=== PATIENT | female | born 1940 | race Caucasian/White ===

== ENCOUNTER 2020-07-18 15:24 | Emergency (ER) | payer MEDICARE ==
[~2020-07-18] VITALS: Ht 149.9 cm; Wt 54.5 kg
[2020-07-18] MEDS ORDERED: REPATHA140 MG/ML SC (15:47)
[2020-07-18] MEDS ORDERED: LOSARTAN POTASS25 MG PO (15:48)
[2020-07-18] MEDS ORDERED: PROTONIX40 M2 PO (15:48)
[2020-07-18 16:41] LABS: URINE BILIRUBIN - DIPSTICK NEGATIVE (NEGATIVE); URINE BLOOD DIPSTICK TRACE-INTACT (NEGATIVE); URINE COLOR YELLOW; URINE GLUCOSE - DIPSTICK NEGATIVE (NEGATIVE); URINE KETONE TRACE mg/dL (NEGATIVE); URINE LEUK ESTERASE NEGATIVE (NEGATIVE); URINE NITRITE - DIPSTICK NEGATIVE (Negative); URINE PH 6.5 (4.5-8.0); URINE PROTEIN - DIPSTICK NEGATIVE (NEG-TRACE); URINE SPECIFIC GRAVITY 1.025; URINE UROBILINOGEN - DIPSTICK 0.2 E.U./dL (0.2)
[2020-07-18] MEDS ORDERED: FLEXERIL5 M1 PO (17:41)
[2020-07-18] MEDS ORDERED: NAPROXEN375 MG PO (17:41)
[2020-07-18 17:45] VITALS: BP 164/74
== END 2020-07-18 17:45 | disposition home or self-care (01) ==
LOC: ED 15:24
PROVIDERS: Family Medicine
DX: S76.911A Strain of unspecified muscles, fascia and tendons at thigh level, right thigh, initial encounter (principal); I10 Essential (primary) hypertension; X58.XXXA Exposure to other specified factors, initial encounter; Y92.009 Unspecified place in unspecified non-institutional (private) residence as the place of occurrence of the external cause; Z86.711 Personal history of pulmonary embolism; M79.651 Pain in right thigh

== ENCOUNTER 2022-01-25 03:42 | Emergency (ER) | payer MEDICARE ==
[2022-01-25] VITALS (13 sets, daily range): BP systolic 125–185; BP diastolic 59–91
[~2022-01-25] VITALS: Ht 149.9 cm; Wt 54.0 kg
[~2022-01-25 03:42] MED LIST: FLEXERIL5 M1 PO; LOSARTAN POTASS25 MG PO; NAPROXEN375 MG PO; PROTONIX40 M2 PO; REPATHA140 MG/ML SC
[2022-01-25] MEDS ORDERED: FAMOTIDINE20 M1 PO (03:50)
[2022-01-25] MEDS ORDERED: ROSUVASTATIN CA10 MG (03:50)
[2022-01-25] MEDS ORDERED: PROTONIX40 M2 PO (03:51)
[2022-01-25] MEDS ORDERED: ASPIRIN81 MG PO (03:51)
[2022-01-25] MEDS ORDERED: CENTRUM PO (03:51)
[2022-01-25] MEDS ORDERED: CALTRATE 600+D1 CHW (03:52)
[2022-01-25] MEDS ORDERED: TIMOLOL 0.25%5 ML OP (03:53)
[2022-01-25 04:12] LABS: HEMATOCRIT 39.9 % (37.0-47.0); HEMOGLOBIN 13.2 g/dl (12.0-16.0); IMMATURE GRANULOCYTES 0.3 % (0.0-5.0); MEAN CELL VOLUME 95.5 fL CALC (80.0-100.0); MEAN CORPUSCULAR HGB 31.6 pG CALC (26.0-32.0); MEAN CORPUSCULAR HGB CONC 33.1 g/dL CAL (32.0-36.0); NEUT# 4.01 thou/uL (2.00-7.15); RED BLOOD COUNT 4.18 mill/uL (4.20-5.60); RED CELL DISTRI WIDTH 12.6 % (11.5-15.5)
[2022-01-25 04:19] LABS: ALBUMIN 4.2 g/dL (3.2-5.0); ALKALINE PHOSPHATASE 70 u/l (38-126); ANION GAP 9 (6-22 (CALC)); BILIRUBIN, TOTAL 0.5 mg/dL (0.0-1.4); BUN 8 mg/dL (8-23); BUN/CREATININE RATIO 16 (12-20 (CALC)); CARBON DIOXIDE 28 mmol/l (22-30); CHLORIDE 103 mmol/l (95-108); CREATININE 0.5 mg/dL (0.5-1.0); GFR FOR AFR.AMER. > 60 ML/MIN (>=60 (CALC)); GFR OTHER RACES > 60 ML/MIN (>=60 (CALC)); SGOT/AST 49 u/l (9-36); SODIUM 136 mmol/l (137-146); TOTAL PROTEIN 6.7 g/dL (6.3-8.2)
[2022-01-25 04:21] LABS: POTASSIUM 3.7 mmol/l (3.5-5.1)
[2022-01-25 04:22] LABS: D-DIMER 1.01 mg/L (0.19-0.60)
[2022-01-25 04:31] LABS: ACT PARTIAL THROMBO TIME 18.9 SECONDS (20.0-32.5); MYOGLOBIN 38 ng/mL (0 - 62)
[2022-01-25] MEDS ORDERED: AMOX/K CLAV875 M1 PO (07:58)
[2022-01-25] MEDS ORDERED: ZPAK PO (07:58)
[2022-01-25 08:03] LABS: URINE BILIRUBIN - DIPSTICK NEGATIVE (NEGATIVE); URINE BLOOD DIPSTICK NEGATIVE (NEGATIVE); URINE COLOR YELLOW; URINE GLUCOSE - DIPSTICK NEGATIVE (NEGATIVE); URINE KETONE 15 mg/dL (NEGATIVE); URINE LEUK ESTERASE NEGATIVE (NEGATIVE); URINE PH 7.5 (4.5-8.0); URINE PROTEIN - DIPSTICK NEGATIVE (NEG-TRACE); URINE UROBILINOGEN - DIPSTICK 0.2 E.U./dL (0.2)
[2022-01-25 08:04] LABS: URINE NITRITE - DIPSTICK NEGATIVE (Negative)
== END 2022-01-25 08:15 | disposition home or self-care (01) ==
LOC: ED 03:42
PROVIDERS: Family Medicine
DX: S00.03XA Contusion of scalp, initial encounter (principal); S16.1XXA Strain of muscle, fascia and tendon at neck level, initial encounter; J18.9 Pneumonia, unspecified organism; I10 Essential (primary) hypertension; W07.XXXA Fall from chair, initial encounter; Y92.000 Kitchen of unspecified non-institutional (private) residence as the place of occurrence of the external cause; Z86.718 Personal history of other venous thrombosis and embolism
CPT/HCPCS: Q9967

== ENCOUNTER 2022-09-22 01:28 | Emergency (ER) | payer MEDICARE ==
[~2022-09-22] VITALS: Ht 149.9 cm; Wt 45.0 kg
[2022-09-22] VITALS (8 sets, daily range): BP systolic 124–163; BP diastolic 62–74
[~2022-09-22 01:28] MED LIST changes: +AMOX/K CLAV875 M1 PO; +ASPIRIN81 MG PO; +CALTRATE 600+D1 CHW; +CENTRUM PO; +FAMOTIDINE20 M1 PO; +ROSUVASTATIN CA10 MG; +TIMOLOL 0.25%5 ML OP; +ZPAK PO
[2022-09-22 02:21] LABS: BASO% 0.8 % (0-3); HEMATOCRIT 39.6 % (37.0-47.0); IMMATURE GRANULOCYTES 0.2 % (0.0-5.0); LYMPH% 50.6 % (15-41); MEAN CELL VOLUME 93.2 fL CALC (80.0-100.0); MEAN CORPUSCULAR HGB 30.6 pG CALC (26.0-32.0); MEAN CORPUSCULAR HGB CONC 32.8 g/dL CAL (32.0-36.0); MONO% 9.5 % (2-13); NEUT# 1.82 thou/uL (2.00-7.15); NEUT% 35.9 % (42-76); RED BLOOD COUNT 4.25 mill/uL (4.20-5.60); RED CELL DISTRI WIDTH 12.5 % (11.5-15.5)
[2022-09-22 02:28] LABS: ALBUMIN 4.6 g/dL (3.2-5.0); ALKALINE PHOSPHATASE 83 u/l (38-126); ANION GAP 13 (6-22 (CALC)); BUN 12 mg/dL (8-23); BUN/CREATININE RATIO 22 (12-20 (CALC)); CARBON DIOXIDE 28 mmol/l (22-30); CHLORIDE 99 mmol/l (95-108); CREATININE 0.5 mg/dL (0.5-1.0); GFR FOR AFR.AMER. > 60 ML/MIN (>=60 (CALC)); GFR OTHER RACES > 60 ML/MIN (>=60 (CALC)); POTASSIUM 4.1 mmol/l (3.5-5.1); SGOT/AST 41 u/l (9-36); SODIUM 136 mmol/l (137-146)
[2022-09-22 02:29] LABS: BILIRUBIN, TOTAL 0.3 mg/dL (0.02-1.3)
== END 2022-09-22 03:24 | disposition home or self-care (01) ==
LOC: ED 01:28
PROVIDERS: Emergency Medicine
DX: R00.2 Palpitations (principal); I10 Essential (primary) hypertension; Z86.718 Personal history of other venous thrombosis and embolism; Z20.822 Contact with and (suspected) exposure to COVID-19

== ENCOUNTER 2024-08-10 17:47 | Emergency (ER) | payer MEDICARE ==
[~2024-08-10] VITALS: Ht 149.9 cm; Wt 49.8 kg
[2024-08-10 19:25] LABS: URINE BILIRUBIN - DIPSTICK Negative (NEGATIVE); URINE BLOOD DIPSTICK Negative (NEGATIVE); URINE COLOR Yellow; URINE GLUCOSE - DIPSTICK Negative (NEGATIVE); URINE KETONE Trace mg/dL (NEGATIVE); URINE LEUK ESTERASE Trace (NEGATIVE); URINE NITRITE - DIPSTICK Negative (Negative); URINE PROTEIN - DIPSTICK Negative (NEG-TRACE); URINE SPECIFIC GRAVITY 1.015; URINE UROBILINOGEN - DIPSTICK 0.2 E.U./dL (0.2)
[2024-08-10 20:28] VITALS: BP 108/78
== END 2024-08-10 20:28 | disposition home or self-care (01) ==
LOC: ED 17:47
PROVIDERS: Nurse Practitioner
DX: N81.10 Cystocele, unspecified (principal); I10 Essential (primary) hypertension; Z86.718 Personal history of other venous thrombosis and embolism